=== PATIENT | female | born 1955 | race Caucasian/White ===

== ENCOUNTER → 2016-06-06 | Outpatient (REF) | payer OTHER ==
[2016-06-06 11:19] LABS: PERCENT SATURATION 25.2 % (13.2-37.4)
== END ==
LOC: M LAB REF 10:51
PROVIDERS: ATTEND Nurse Practitioner Adult Health
DX: K91.2 Postsurgical malabsorption, not elsewhere classified (principal)

== ENCOUNTER → 2016-11-27 | Outpatient (REF) | payer OTHER ==
[2016-11-27 15:11] LABS: PERCENT SATURATION 20.6 % (13.2-45.0)
== END ==
LOC: M LAB REF 13:33
PROVIDERS: ATTEND Nurse Practitioner Adult Health
DX: Z98.84 Bariatric surgery status (principal)

== ENCOUNTER → 2017-05-26 | Outpatient (REF) | payer OTHER | LOC: M LAB REF 11:54 | DX: R30.0 Dysuria (principal) ==

== ENCOUNTER → 2018-06-16 | Outpatient (REF) | payer OTHER ==
[2018-06-16 13:34] LABS: FERRITIN 21 NG/ML (8-252); IRON (FE) 74 UG/DL (50-170); PERCENT SATURATION 22.6 % (13.2-45.0); RHEUMATOID FACTOR QUANT < 10.0 IU/ML (<15.0); TOTAL IRON BINDING CAPACITY 328 UG/DL (250-450); VITAMIN B12 LEVEL 1212 PG/ML (247-911)
[2018-06-21 00:06] LABS: ANTINUCLEAR ANTIBODIES DIRECT Negative (Negative); VITAMIN B1 LEVEL WHOLE BLOOD 120.1 nmol/L (66.5-200.0)
== END ==
LOC: M LAB REF 12:24
PROVIDERS: ATTEND Nurse Practitioner Adult Health
DX: Z98.84 Bariatric surgery status (principal); M15.9 Polyosteoarthritis, unspecified

== ENCOUNTER → 2018-12-28 | Outpatient (CLI) | payer OTHER ==
[~2018-12-28] MED LIST: BARI1CAP PO; BRONCHW PO; CALC500C14 PO; CHOL100029 PO; CITRTAB18 PO; CYCL5TAB PO; CYMB1CAP5 PO; FAMO20TA PO; GNP650TA8 PO; LIDO5DIS41 TD; NEUR300C PO; OMEP40CA97 PO; TRAM50TA2 PO; TRAV04OPD OU; TRUS1SOL OU; VITA500C24 PO; VITA500T41 PO; XARE20TA PO
[2018-12-28 10:49] LABS: HEMATOCRIT 38.9 % (36.0-47.0); HEMOGLOBIN 12.2 g/dl (12.0-15.5); MEAN CORPUSCULAR HEMOGLOBIN 31.2 pg (27.0-33.0); MEAN CORPUSCULAR HGB CONC 31.4 g/dl (32.0-36.5); MEAN CORPUSCULAR VOLUME 99.5 fl (80.0-96.0); PLATELET COUNT, AUTOMATED 255 10^3/uL (150-450); RED BLOOD COUNT 3.91 10^6/uL (4.00-5.40); WHITE BLOOD COUNT 5.9 10^3/uL (4.0-10.0)
[2018-12-28 11:01] LABS: INR 1.4; PROTHROMBIN TIME 16.9 SECONDS (11.8-14.0)
[2018-12-28 11:11] LABS: ERYTHROCYTE SEDIMENTATION RATE 27 mm/hr (0-30)
[2018-12-28 11:14] LABS: ALBUMIN 4.2 GM/DL (3.2-5.2); ALT/SGPT 20 U/L (12-78); BILIRUBIN,TOTAL 0.5 MG/DL (0.2-1.0); BLOOD UREA NITROGEN 17 MG/DL (7-18); CALCIUM LEVEL 9.9 MG/DL (8.8-10.2); CARBON DIOXIDE LEVEL 32 MEQ/L (21-32); CHLORIDE LEVEL 106 MEQ/L (98-107); CREATININE FOR GFR 0.78 MG/DL (0.55-1.30); GLOMERULAR FILTRATION RATE > 60.0 (>45); GLUCOSE, FASTING 81 MG/DL (70-100); POTASSIUM SERUM 3.9 MEQ/L (3.5-5.1); SODIUM LEVEL 140 MEQ/L (136-145); TOTAL PROTEIN 7.1 GM/DL (6.4-8.2)
--- NOTE | 2018-12-28 11:49 | REP ---
Two-view chest: 12/28/2018. Indication: Preoperative assessment. Comparison: 08/28/2015. Findings: The lungs are clear. There is no pleural effusion or pneumothorax. Degenerative sequelae of the thoracic spine are present as well as evidence of DISH. The cardiomediastinal silhouette is unremarkable. Impression: No acute cardiopulmonary process. Electronically Signed by Ahmet Pham DO 12/28/2018 11:41 A
--- NOTE | 2018-12-28 21:49 | ECGEPIP ---
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
== END ==
LOC: M RAD 10:02
PROVIDERS: ATTEND Orthopaedic Surgery
DX: Z01.810 Encounter for preprocedural cardiovascular examination (principal); M17.11 Unilateral primary osteoarthritis, right knee; I49.9 Cardiac arrhythmia, unspecified

== ENCOUNTER 2019-01-17 06:43 | Inpatient (IN) | payer MEDICAID, OTHER ==
--- NOTE | 2019-01-10 11:03 | HPE ---
DATE OF ANTICIPATED ADMISSION: 01/17/2019 HISTORY OF PRESENT ILLNESS: Mrs. Wilhelm is a pleasant 63-year-old female with continuing symptomatic right knee osteoarthritis. She consented for right total knee arthroplasty per Dr. Victor Hugo Mccarthy. Medical optimization was completed by Debbi Ni, for which I am awaiting clearance note. The patient reports to be cleared per her own history. X-rays are consistent with advanced osteoarthritis. There is question of remaining cardiac clearance before surgery. ALLERGIES: None known to drugs. MEDICATION LIST: - tramadol HCl 50 mg - Lidoderm 5% - gabapentin 300 mg - Tylenol arthritis pain 650 mg - calcium gummies 250-100-500 mg - unit - multivitamin gummies adult - duloxetine HCl 30 mg - vitamin D high potency 1000 units - omeprazole 40 mg - vitamin B12 natural 500 mcg - vitamin C 500 mg - Citracal Petite/vitamin D 200-250 mg-unit - cyclobenzaprine HCl 5 mg - Xarelto 20 mg. MEDICAL PROBLEM LIST: Includes; Symptomatic right knee osteoarthritis. Depression. History of cardiac disease. PAST SURGICAL HISTORY: Gastric bypass. Glaucoma surgery. Bilateral cataract removal. SOCIAL HISTORY: She quit smoking in 1956. Rare ethanol intake. FAMILY HISTORY: Positive for arthritis. REVIEW OF SYSTEMS: Denies shortness of breath, dyspnea on exertion, fever, chills, malaise, upper respiratory or urinary tract symptoms. EKG showed sinus rhythm with marked sinus arrhythmia, prior tracing on 01/18/14 showed no significant change, as read by Dr. Jareth Vieira via [facility], test date 12/28/18. Chest x-ray via [facility] on 12/28/18: No acute cardiopulmonary process, as read by Dr. Ahmet Pham. Lab results showed RBC of 3.19, MCH at 99.5, MCHC 31.4, prothrombin time 16.9, calcium 2, alkaline phosphatase 123, otherwise unremarkable. PHYSICAL EXAMINATION: Height 5 feet 5 inches, weight one 145, temperature 98.7, blood pressure 131/87, pulse 82, respiration 13. This is a pleasant, well-developed, well-nourished female in no acute distress. She is alert and times three. Mood and affect are appropriate. She is ambulating with favoring of her left lower extremity. Bilateral lower extremities skin temperature, color, sensory motor are intact without any defects. Right knee: Positive medial joint line tenderness with varus osteoarthritic alignment. Knee range of motion with crepitance and pain throughout. Bowel sounds, soft, nontender times four. Chest rises symmetrically. Regular rate and rhythm. Lungs: Clear to auscultation. Neck: Supple. Negative jugular venous distention (JVD) or bruits. Normocephalic. IMPRESSION: 1. Symptomatic right knee osteoarthritis. 2. Patient consented for right total knee arthroplasty per Dr. Victor Hugo Mccarthy. 3. Primary care consultation via Debbi Ni on 01/04/19. 4. 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 5. 1 gram intravenous (IV) Kefzol in operating room (OR). 6. Sequential compression devices (SCDs) and thromboembolism deterrents (TEDs) in OR. 7. Will make sure that there is cardiac clearance attention through our scheduling office. QUETA
[~2019-01-17] VITALS: Ht 167.6 cm; Wt 68.0 kg
[2019-01-17] MEDS ORDERED: LR 1,000 ML IV ONE (06:45)
[2019-01-17] MEDS ORDERED: ceFAZolin SOD 2 GM in IV 1 EA IV ONE (06:45)
[2019-01-17] MEDS ORDERED: PROPOFOL 500 MG/50 ML VIAL As Ordered ONE (07:15)
[2019-01-17] MEDS ORDERED: MIDAZOLAM INJ 2 MG/2 ML VIAL (J2250) As Ordered ONE ×2 (07:15→08:30)
[2019-01-17] MEDS ORDERED: ONDANSETRON 4MG/2ML VIAL (J2405) As Ordered ONE (07:16)
[2019-01-17] MEDS ORDERED: LIDOCAINE 2% INJ 100 MG/5 ML SDV (FOR ANES.) As Ordered ONE (07:16)
[2019-01-17] MEDS ORDERED: TRANEXAMIC ACID 100 MG/ML 10ML VIAL As Ordered ONE (07:32)
[2019-01-17] MEDS ORDERED: ceFAZolin 1GM INJ (J0690 PER 500MG) As Ordered ONE (07:32)
[2019-01-17] MEDS ORDERED: EPINEPHrine INJ 1 MG/ML 1ML VIAL As Ordered ONE (07:32)
[2019-01-17] MEDS ORDERED: BUPIVACAINE LIPOSOME/PF 1.3% 20ML VIAL (13.3MG/ML)(EXPAREL)(C9290 PER1MG) As Ordered ONE (07:33)
--- NOTE | 2019-01-17 07:52 | IPN ---
DATE: 02/17/2018 The patient seen and examined. She wished to go ahead with a right total knee arthroplasty. She understands the nature of this, the risks of bleeding, infection, damage to nerves, vessels, persistent pain, wear loosening, blood clots, medical problems, among others.
[2019-01-17] MEDS ORDERED: fentaNYL 100 MCG/2 ML INJECTION (J3010) As Ordered ONE ×3 (08:30→10:53)
[2019-01-17] MEDS: MIDAZOLAM INJ 2 MG/2 ML VIAL (J2250) IV PRN ×2 (08:49→08:53)
[2019-01-17] MEDS: CYANOCOBALAMIN 500 MCG TAB PO SCH (09:00)
[2019-01-17] MEDS ORDERED: ROCURONIUM BROMIDE 50 MG/5 ML VIAL As Ordered ONE (09:13)
[2019-01-17] MEDS ORDERED: ACETAMINOPHEN 1000MG 100ML IV BTL (OFIRMEV) (J0131 PER 10MG) As Ordered ONE (09:45)
[2019-01-17] MEDS ORDERED: SUGAMMADEX SODIUM 500 MG/5 ML VIAL (BRIDION) As Ordered ONE (09:45)
[2019-01-17] MEDS ORDERED: PHENYLephrine HCL 500 MCG/5 ML (100MCG/ML) SYRINGE (J2370) As Ordered ONE (10:13)
[2019-01-17] MEDS ORDERED: PERCOCET 5MG/325MG TAB As Ordered ONE (10:53)
[2019-01-17] MEDS: fentaNYL 100 MCG/2 ML INJECTION (J3010) IV PRN ×3 (10:55→11:06)
[2019-01-17] MEDS ORDERED: ACETAMINOPHEN TAB 650MG DOSE (2X325MG) PO PRN (11:00)
[2019-01-17] MEDS ORDERED: FLEET ENEMA PR PRN (11:00)
[2019-01-17] MEDS ORDERED: MORPHINE 2 MG/ML 1ML VIAL (J2270) IV PRN ×2 (11:00)
[2019-01-17] MEDS ORDERED: ONDANSETRON 4MG/2ML VIAL (J2405) IV PRN ×2 (11:00→11:30)
[2019-01-17] MEDS ORDERED: LR 1,000 ML IV SCH ×2 (11:00→11:30)
[2019-01-17] MEDS ORDERED: fentaNYL 100 MCG/2 ML INJECTION (J3010) IV PRN (11:15)
--- NOTE | 2019-01-17 11:21 | REP ---
Right knee: Two views. History: Status post right knee arthroplasty. Findings: Portably obtained AP and cross-table lateral views are presented. Anterior skin isa are seen. Patellar, femoral, and tibial prosthetic components are well aligned with respect to each other and their [place] bones. There is periarticular soft tissue emphysema and swelling. Diffuse osteopenia is noted. Electronically Signed by Cesar Brennan MD 01/17/2019 12:16 P
[2019-01-17] MEDS ORDERED: PERCOCET 5MG/325MG TAB PO PRN (11:30)
[2019-01-17] MEDS ORDERED: METOCLOPRAMIDE INJ 10MG/2ML VIAL (J2765) IV PRN (11:30)
--- NOTE | 2019-01-17 12:40 | RO ---
DATE OF PROCEDURE: 01/17/2019 PREOP DIAGNOSIS: Right knee osteoarthritis. POSTOPERATIVE DIAGNOSIS: Right knee osteoarthritis. PROCEDURE: Right total knee arthroplasty using Attune rotating platform posterior stabilized, size 5 femur, size 5 tibia, 10 polyethylene and a 35 patellar button. SURGEON: Dr. Victor Hugo Mccarthy. UNIVERSAL BANKER: ADRIEL Edge ANESTHESIA: Spinal ESTIMATED BLOOD LOSS: 50 COMPLICATIONS: None. INDICATIONS: This is a 63-year-old woman who wished to have a knee replacement. Preop clearance was obtained. DESCRIPTION OF PROCEDURE: The patient was taken to the operating room, placed the supine position after spinal anesthesia was induced. The right lower extremity was prepped and draped in usual sterile fashion. Time-out was performed. Tourniquet was inflated. A longitudinal incision was made over the anterior aspect the knee. Sharp dissection was carried down to the . I then performed a medial parapatellar arthrotomy. Everted the patella, flexed the knee up and used the canal initiating reamer on the femoral side. The intramedullary guide was set at 9 mm cut and 5 degrees of valgus which sat down very nicely. This was pinned in place and I did dial it back 2 mm because she had somewhat of a flexion contracture. The distal femoral cut was made. The sizing guide was then used and noted be a size 5 femur and pinholes were placed in the end of the femur with the external rotation dialed in and then the cutting block was secured with a size 5, which was then secured down. I did use an extra pin because her bone was quite soft. Remaining four cuts were made. I then prepared the tibia. The posterior retractor was placed and I freed up the posterior cruciate ligament (PCL). The tibial alignment guide was secured in the appropriate amount of valgus and posterior slope. This was pinned in place and the external line was checked again. The proximal tibia cut was made removing this bone. I then used a fish and wildlife scientific aid to removed soft tissue and osteophytes from either side of the knee and it was noted that the PCL was deficient. I elected to go ahead with the PCL sacrificing knee and the cutting block was then secured to end of the femur. The remaining three cuts were made. I prepared the tibia after I used the spacer blocks to determine approximately a size 10 polyethylene was appropriate. I had done a medial release. I did have to extend this a little bit further. The size 5 tray fit nicely on the tibia. I drilled and broached and then placed the trial components and was very pleased with the size 10. Had excellent stability in extension and flexion and excellent soft tissue balance and alignment. I then freehand cut the patella removing about 7 mm of bone. Sized to be a 35. Drill holes were placed in the patella and the end of the femur and the coding assistant prepared the bone cement. I then trialled the patella and it tracked quite nicely. The trial components removed. I injected the Exparel in the deep tissues. I irrigated copiously, dried the bony surfaces and cemented the components, removing all excess bone cement. Held the patella in place with a clamp. I then irrigated again placed the TXA deep in the wound and then started the closure with #1 Vicryl suture in interrupted fashion. Once the cement hardened, I removed the patellar clamp and closed the remaining deep layer with running Stratafix suture. Prior to this, did a final deep irrigation. Watertight closure was obtained. The patella tracked quite nicely. I then irrigated, closed the subcu with #2-0 Vicryl and the skin with isa. Tourniquet was deflated once the cement was hardened. Sterile dressing was applied. She was taken to recovery room in stable condition. There were no known complications. The plan will be routine postop. The coding assistant was instrumental in holding retractors and assisting in mixing the bone cement and assisting in wound closure. The coding assistant was instrumental in holding retractors and assisting mixing the bone cement and assisting in wound closure. QUETA
[2019-01-17] MEDS ORDERED: ROPIvacaine 0.5% 30 ML INJECTION (J2795 PER 1MG) ONE (13:19)
[2019-01-17] MEDS ORDERED: LIDOCAINE 1% MDV 20ML VIAL ONE (13:19)
[2019-01-17] MEDS ORDERED: EPINEPHrine INJ 1 MG/ML 1ML VIAL ONE (13:19)
[2019-01-17] MEDS: GABAPENTIN 300 MG CAP PO SCH ×2 (16:00→21:07)
[2019-01-17] MEDS: PERCOCET 5MG/325MG TAB PO PRN (16:36)
--- NOTE | 2019-01-17 17:36 | CR.PDOC ---
General Date of Consultation: Jan 17, 2019 Consultation REASON FOR CONSULTATION/CHIEF COMPLAINT: Medical management. HISTORY OF PRESENT ILLNESS: 63-year-old female with past medical history of atrial fibrillation on Xarelto, neuropathy and GERD is admitted status post right total knee arthroplasty. She is seen on the floor, resting comfortably, without any complaints, pain is well-controlled with current pain regimen. She denies any medical issues prior, to surgery. She denies any short of breath, chest pain, nausea, vomiting. Diarrhea at this time. 10 point review of system is negative except for above ALLERGIES: Please see below. HOME MEDICATIONS: Please see below. PAST MEDICAL HISTORY: 1. Atrial fibrillation. 2. Neuropathy. 3. GERD PAST SURGICAL HISTORY: 1. Gastric bypass 2. Eye surgeries FAMILY HISTORY: Positive for heart disease in both parents SOCIAL HISTORY: Ex-smoker, quit over 40 years ago, smoked 2-3 packs per day for 20+ years PHYSICAL EXAMINATION: VITAL SIGNS: Please see below. GENERAL: No distress HEENT: Normocephalic, atraumatic, moist mucous membranes NECK: Supple CARDIOVASCULAR EXAMINATION: S1, S2, no murmurs RESPIRATORY EXAMINATION: Clear to auscultation, no wheezing ABDOMINAL EXAMINATION: Soft, nontender, nondistended, positive bowel sounds EXTREMITIES: Range of motion limited due to pain SKIN: No rash NEUROLOGICAL EXAMINATION: Alert and oriented 3, no focal deficits PSYCHIATRIC EXAMINATION: Calm and cooperative LABORATORY DATA: Please see below. ASSESSMENT/PLAN: 63-year-old female admitted after right total knee arthroplasty. 1. Right total knee arthroplasty. Management as per primary team, Xarelto dose was increased from 10 mg to 20 mg which is what patient takes at home for her atrial fibrillation. 2. Atrial fibrillation. Continue Xarelto starting tomorrow, rate controlled without medication. 3. Neuropathy. Continue home duloxetine 4. GERD. Continue home Pepcid DVT prophylaxis: Xarelto GI prophylaxis: Pepcid Vital Signs/I&O Vital Signs Date Time Temp Pulse Resp B/P (MAP) Pulse Ox O2 Delivery O2 Flow Rate FiO2 01/17/19 16:36 16 01/17/19 11:20 97.8 68 160/78 (105) 100 Room Air 01/17/19 09:00 2 Allergies Coded Allergies: No Known Allergies (Unverified , 01/17/19) Home Medications Scheduled Cyanocobalamin (Vitamin B-12) (Vitamin B-12) 500 Mcg Tablet, 1,000 MCG PO DAILY, (Reported) Dorzolamide HCl (Trusopt) 2% 10ML Drops, 1 DROP OU QHS, (Reported) Duloxetine Hcl (Cymbalta) 30 Mg Capsule.dr, 30 MG PO DAILY, (Reported) Famotidine (Famotidine) 20 Mg Tablet, 20 MG PO BID, (Reported) Gabapentin (Neurontin) 300 Mg Capsule, 300 MG PO TID, (Reported) Multivitamin (Chewable-Estella) 1 Each Tab.chew, 1 CHW PO DAILY, (Reported) Rivaroxaban (Xarelto) 20 Mg Tablet, 20 MG PO DAILY, (Reported) Travoprost (Travatan Z) 0.004% 2.5ML Drops, 1 DROP OU QPM, #3 (Reported) Scheduled PRN Acetaminophen (8 Hour) 650 Mg Tablet.er, 650 MG PO PRN PRN for PAIN, (Reported) Tramadol HCl (Tramadol HCl) 50 Mg Tablet, 50 MG PO BIDP PRN for PAIN, (Reported) HEAVEN MCKEON MD Jan 17, 2019 17:36
[2019-01-17] MEDS: ceFAZolin SOD 2 GM in IV 1 EA IV SCH (18:05)
[2019-01-17] MEDS ORDERED: LATANOPROST 0.005% OPHTH SOLN 2.5 ML OU SCH (21:00)
[2019-01-17] MEDS ORDERED: DORZOLAMIDE 2% OPHTH SOLN 10 ML BTL OU SCH (21:00)
[2019-01-17] MEDS: FAMOTIDINE 20 MG TAB PO SCH (21:06)
[2019-01-17] MEDS: traMADol 50 MG TAB PO PRN (21:07)
[2019-01-17 21:29] VITALS: BP 104/52
[2019-01-18] MEDS: PERCOCET 5MG/325MG TAB PO PRN ×3 (01:25→14:34)
[2019-01-18] MEDS: ceFAZolin SOD 2 GM in IV 1 EA IV SCH (01:26)
[2019-01-18 02:00] VITALS: BP 116/68
[2019-01-18] MEDS: traMADol 50 MG TAB PO PRN (06:12)
[2019-01-18 06:23] VITALS: BP 115/64
[2019-01-18 06:38] LABS: HEMATOCRIT 29.5 % (36.0-47.0); HEMOGLOBIN 9.2 g/dl (12.0-15.5); MEAN CORPUSCULAR HEMOGLOBIN 31.5 pg (27.0-33.0); MEAN CORPUSCULAR HGB CONC 31.2 g/dl (32.0-36.5); PLATELET COUNT, AUTOMATED 300 10^3/uL (150-450); RED BLOOD COUNT 2.92 10^6/uL (4.00-5.40); WHITE BLOOD COUNT 8.4 10^3/uL (4.0-10.0)
[2019-01-18] MEDS ORDERED: TRAM50TA2 PO (07:03)
[2019-01-18] MEDS ORDERED: XARE10TA PO (07:03)
[2019-01-18 09:00] VITALS: BP 112/64
[2019-01-18] MEDS ORDERED: MOM 30ML SUSPENSION UDC PO SCH (09:00)
[2019-01-18] MEDS ORDERED: MIRALAX *UNIT DOSE* 17GM PACKET PO SCH (09:00)
[2019-01-18] MEDS ORDERED: SENOKOT S TAB PO SCH (09:00)
[2019-01-18] MEDS ORDERED: DULoxetine 30 MG CAP (CYMBALTA) PO SCH (09:00)
[2019-01-18] MEDS: FAMOTIDINE 20 MG TAB PO SCH (09:56)
[2019-01-18] MEDS: CYANOCOBALAMIN 500 MCG TAB PO SCH (09:57)
[2019-01-18] MEDS: GABAPENTIN 300 MG CAP PO SCH (09:58)
[2019-01-18 15:24] VITALS: BP 127/78
[2019-01-18] MEDS ORDERED: RIVAROXABAN 10 MG TAB (XARELTO) PO SCH (18:00)
[2019-01-18] MEDS ORDERED: RIVAROXABAN 20 MG TAB (XARELTO) PO SCH (18:00)
[2019-01-19] MEDS ORDERED: FLUBLOK(EGG FREE)(QUAD)INFLUENZA VACC 0.5ML SYRINGE (90682)18YRS&OLDER IM ONE (09:00)
--- NOTE | 2019-01-26 14:27 | DSES ---
DATE OF ADMISSION: 01/17/2019 DATE OF DISCHARGE: 01/18/2019 ATTENDING PHYSICIAN: Victor Hugo Mccarthy MD ADMISSION DIAGNOSIS: Osteoarthritis right knee. OTHER DIAGNOSES: 1. Depression. 2. Cardiac disease. DISCHARGE DIAGNOSIS: Osteoarthritis right knee status post right total knee arthroplasty. OPERATION PERFORMED: Right total knee arthroplasty. HISTORY: This is a 63-year-old female patient with progressively worsening right knee pain and stiffness who failed to improve with conservative management. She was admitted for elective knee replacement on the right side. HOSPITAL COURSE: The patient was admitted on the day of surgery and underwent a right total knee arthroplasty which was uneventful. She did well in the postoperative period and hospital course was without complication. She was up with physical therapy per their protocol and pain was controlled on the day of discharge. She was doing well, weightbearing as tolerated on the right lower extremity and will use Xarelto and thromboembolic deterrent stockings (TEDS) for deep vein thrombosis (DVT) prophylaxis per protocol. She will resume her preoperative medications and diet along with oral pain medication for pain control. She was given instructions to include, but not limited to, wound monitoring and activity limitations. She will follow up in our office in 10-14 days for surgical followup. Please refer to the medical record for further details.
== END 2019-01-18 15:45 | disposition home health service (06) | DRG 302 ==
LOC: M OR 06:43 → M MS5PR 11:40
PROVIDERS: ADMIT Orthopaedic Surgery; ATTEND Orthopaedic Surgery
PROC: 0SRC0J9 Replacement of Right Knee Joint with Synthetic Substitute, Cemented, Open Approach (ICD-10-PCS; principal; 2019-01-17 09:00)
DX: M17.11 Unilateral primary osteoarthritis, right knee (principal); G62.9 Polyneuropathy, unspecified; F32.9 Major depressive disorder, single episode, unspecified; I51.9 Heart disease, unspecified; I48.91 Unspecified atrial fibrillation; Z79.899 Other long term (current) drug therapy; Z98.84 Bariatric surgery status; Z98.41 Cataract extraction status, right eye; Z98.42 Cataract extraction status, left eye; K21.9 Gastro-esophageal reflux disease without esophagitis; Z87.891 Personal history of nicotine dependence

== ENCOUNTER → 2019-07-19 | Outpatient (REF) | payer OTHER ==
[~2019-07-19] MED LIST changes: +XARE10TA PO
[2019-07-19 18:35] LABS: PERCENT SATURATION 26.8 % (13.2-45.0)
[2019-07-19 18:51] LABS: TOTAL 25(OH) VITAMIN D 30.8 NG/ML (30.0-100.0)
== END ==
LOC: M LAB REF 16:06
PROVIDERS: ATTEND Nurse Practitioner Adult Health
DX: K91.2 Postsurgical malabsorption, not elsewhere classified (principal)

== ENCOUNTER → 2020-10-16 | Outpatient (REF) | payer OTHER ==
[~2020-10-16] MED LIST changes: +OMEP40CA4 PO; -OMEP40CA97 PO
[2020-10-16 18:13] LABS: FOLATE 14.2 NG/ML
== END ==
LOC: M LAB REF 16:31
PROVIDERS: ATTEND Nurse Practitioner Adult Health
DX: Z98.84 Bariatric surgery status (principal)

== ENCOUNTER → 2020-11-06 | Outpatient (REF) | payer MEDICARE, OTHER ==
[2020-11-06 13:09] LABS: APPEARANCE, URINE CLEAR (CLEAR); BACTERIA, URINE AUTO NEGATIVE (NEGATIVE); BILIRUBIN, URINE AUTO NEGATIVE (NEGATIVE); BLOOD, URINE BLOOD NEGATIVE (NEGATIVE); COLOR, URINE STRAW (YELLOW); GLUCOSE, URINE (UA) AUTO NEGATIVE (NEGATIVE); KETONE, URINE AUTO NEGATIVE (NEGATIVE); LEUKOCYTE ESTERASE, URINE AUTO NEGATIVE (NEGATIVE); MUCUS, URINE SMALL (NEGATIVE); NITRITE, URINE AUTO NEGATIVE (NEGATIVE); PROTEIN, URINE AUTO NEGATIVE (NEGATIVE); RBC, URINE AUTO 0 /HPF (0-3); SPECIFIC GRAVITY URINE AUTO 1.004 (1.002-1.035); SQUAMOUS EPITHELIAL CELL UR AU 1 /HPF (0-6); UROBILINOGEN, URINE AUTO 0.2 mg/dL (0.0-2.0); WBC, URINE AUTO 0 /HPF (0-3)
== END ==
LOC: M LAB REF 12:26
PROVIDERS: ATTEND Obstetrics & Gynecology
DX: N39.0 Urinary tract infection, site not specified (principal)

== ENCOUNTER 2021-02-07 15:50 | Inpatient (IN) | payer MEDICARE, OTHER ==
[~2021-02-07] VITALS: Ht 167.6 cm; Wt 69.4 kg
[~2021-02-07 15:50] MED LIST changes: +TRUS1SOL OS; -TRUS1SOL OU
--- NOTE | 2021-02-07 16:35 | REP ---
INDICATION: CHEST PAIN COMPARISON: 12/28/2018 TECHNIQUE: Portable AP view of the chest FINDINGS: The mediastinum and cardiac silhouette are stable and within normal limits for portable technique. The lung tang demonstrate stable chronic changes without consolidation or effusion. No pneumothorax. A small vague 6 mm noncalcified nodule in the periphery of the left lower lung zone cannot be excluded and represents a change from prior examination. Skeletal structures are intact. IMPRESSION: No focal consolidation or effusion. Cannot exclude small 6 mm noncalcified nodule in the left lower lung zone. <Electronically signed by Remigio Wang > 02/07/21 [id number]
[2021-02-07 16:51] LABS: BASO % 0.6 % (0.0-1.0); EOS # 0.1 10^3/uL (0.0-0.5); EOS % 1.9 % (0.0-3.0); HEMOGLOBIN 11.1 g/dl (12.0-15.5); LYMPH # 2.4 10^3/uL (1.5-5.0); LYMPH % 32.7 % (24.0-44.0); MEAN CORPUSCULAR HEMOGLOBIN 29.8 pg (27.0-33.0); MEAN CORPUSCULAR HGB CONC 30.8 g/dl (32.0-36.5); MEAN CORPUSCULAR VOLUME 96.8 fl (80.0-96.0); MONO # 0.6 10^3/uL (0.0-0.8); MONO % 7.8 % (2.0-8.0); NEUTROPHILS # 4.1 10^3/uL (1.5-8.5); NEUTROPHILS % 56.9 % (36.0-66.0); PLATELET COUNT, AUTOMATED 302 10^3/uL (150-450); RED BLOOD COUNT 3.72 10^6/uL (4.00-5.40); WHITE BLOOD COUNT 7.2 10^3/uL (4.0-10.0)
[2021-02-07] MEDS ORDERED: ISOVUE-370 76% 100ML VIAL As Ordered ONE (17:01)
[2021-02-07 17:05] LABS: INR 1.1; PROTHROMBIN TIME 14.6 SECONDS (12.7-14.5)
[2021-02-07 17:24] LABS: RSV AMPLIFICATION NEGATIVE (NEGATIVE)
[2021-02-07 17:24] LABS: ALBUMIN 3.6 GM/DL (3.2-5.2); ALT/SGPT 21 U/L (12-78); BILIRUBIN,DIRECT < 0.1 MG/DL (0.0-0.2); BILIRUBIN,TOTAL 0.2 MG/DL (0.2-1.0); BLOOD UREA NITROGEN 19 MG/DL (7-18); CALCIUM LEVEL 8.8 MG/DL (8.8-10.2); CARBON DIOXIDE LEVEL 30 MEQ/L (21-32); CHLORIDE LEVEL 107 MEQ/L (98-107); CREATININE FOR GFR 0.79 MG/DL (0.55-1.30); GLOMERULAR FILTRATION RATE > 60.0 (>45); GLUCOSE, FASTING 84 MG/DL (70-100); LIPASE 182 U/L (73-393); NT-PRO BNP 742 PG/ML (<125); POTASSIUM SERUM 4.5 MEQ/L (3.5-5.1); SODIUM LEVEL 139 MEQ/L (136-145); TOTAL PROTEIN 6.6 GM/DL (6.4-8.2)
[2021-02-07] MEDS ORDERED: ACETAMINOPHEN TAB 650MG DOSE (2X325MG) PO ONE (18:15)
--- NOTE | 2021-02-07 18:20 | REPVR ---
PROCEDURE INFORMATION: Exam: CT Head Without Contrast Exam date and time: 02/07/2021 5:33 PM Age: 65 years old Clinical indication: Pain; Headache; Additional info: DIANNA [email or web address] TECHNIQUE: Imaging protocol: Computed tomography of the head without contrast. Radiation optimization: All CT scans at this facility use at least one of these dose optimization techniques: automated exposure control; mA and/or kV adjustment per patient size (includes targeted exams where dose is matched to clinical indication); or iterative reconstruction. COMPARISON: NM Bone Scan Whole Body 02/27/2014 12:09 PM FINDINGS: Brain: There is mild diffuse parenchymal atrophy. No evidence acute. White disease shift mass. Cerebral ventricles: No ventriculomegaly. Paranasal sinuses: Inflammatory changes right maxillary sinus. Mastoid air cells: Visualized mastoid air cells are well aerated. Bones/joints: Unremarkable. No acute fracture. Soft tissues: Unremarkable. IMPRESSION: No acute intracranial findings. Electronically signed by: Renato Laboy On 02/07/2021 18:19:39 PM
--- NOTE | 2021-02-07 18:22 | ECGEPIP ---
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
--- NOTE | 2021-02-07 18:24 | REPVR ---
PROCEDURE INFORMATION: Exam: CTA Chest With Contrast Exam date and time: 02/07/2021 5:33 PM Age: 65 years old Clinical indication: Pain; Chest pressure; Additional info: Sob/chest pain TECHNIQUE: Imaging protocol: Computed tomographic angiography of the chest with contrast. 3D rendering (Not supervised by radiologist): MIP and/or 3D reconstructed images were created by the technologist. Radiation optimization: All CT scans at this facility use at least one of these dose optimization techniques: automated exposure control; mA and/or kV adjustment per patient size (includes targeted exams where dose is matched to clinical indication); or iterative reconstruction. Contrast material: ISOVUE 370; Contrast volume: 75 ml; Contrast route: INTRAVENOUS (IV); COMPARISON: CR PORTABLE CHEST X-RAY 02/07/2021 4:17 PM FINDINGS: Pulmonary arteries: There are no pulmonary emboli. Aorta: There is no aortic dissection or aneurysm. Lungs: Unremarkable. No consolidation. No masses. Pleural spaces: Unremarkable. No pneumothorax. No pleural effusion. Heart: Unremarkable. No cardiomegaly. No pericardial effusion. Lymph nodes: Unremarkable. No enlarged lymph nodes. 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 Soft tissues: Status post gastric bypass. Status post cholecystectomy. Otherwise unremarkable. IMPRESSION: 1. There is no aortic dissection or aneurysm. 2. There are no pulmonary emboli. 3. No acute pulmonary parenchymal abnormality. Electronically signed by: Renato Laboy On 02/07/2021 18:23:48 PM
[2021-02-07] MEDS ORDERED: DIGOXIN INJ 0.5 MG/2 ML AMP (J1160) IV STA (18:30)
[2021-02-07] MEDS ORDERED: MULTTAB61 PO (18:39)
[2021-02-07] MEDS ORDERED: ACETAMINOPHEN TAB 650MG DOSE (2X325MG) PO PRN (18:45)
[2021-02-07] MEDS ORDERED: METO1TAB87 PO (19:17)
[2021-02-07] MEDS ORDERED: AMOX500C PO (19:17)
[2021-02-07] MEDS ORDERED: XALA0.007 OS (19:23)
[2021-02-07] MEDS ORDERED: OMEP-221 PO (19:24)
[2021-02-07] MEDS ORDERED: HOME MED LIST COMPLETE! XX SCH (19:25)
--- NOTE | 2021-02-07 20:46 | HPEPDOC ---
General Date of Admission 02/07/21 Date of Service: Feb 07, 2021 Chief Complaint The patient is a 65-year-old female admitted with a reason for visit of Chest Pain. Source: Patient History of Present Illness Nessa Wilhelm is a 65 yo F with PMH of cataracts, afib, glaucoma, ABRAHAM without CPAP, GERD, and OA who arrives from cardiology office with dizziness and elevated HR. Pt reportedly has had afib for some time but "never have needed medication" until recently. She reports she has been having episodes of dizziness, chest pain and headaches intermittently past 6 days. She was seen by cardiology and given her uncontrolled HR in 140s and her symptoms, went to [facility] where she was started on metoprolol. Unfortunately, pt's SBP had been running 90-115 and she was adjusted to metoprolol tartrate. She reports taking 5 doses total (twice past 2 days and one this AM). As she went for f/u with cardiology today, was still symptomatic with HR labile 90-140 with softer BP; she was sent to ED for further management to control HR other than metoprolol. Cardiology, Dr. Vieira, consulted in ED and recommended Digoxin loading dose and he would see pt in AM. Pt afebrile, Map greater than 70 during admission and HR varying 90-115. Initial labwork unremarkable. Given pt with dizziness, tachycardia, episodes of chest pain and BUSTAMANTE, she underwent CTA chest and CT head which were nonacute. Pt does endorse recent tooth extraction 6 days ago as only new adjustment and took 6 days worth of Augmentin which finished today. Pt will be admitted for further evaluation and management of presenting concerns. Home Medications Scheduled Amoxicillin (Amoxicillin) 500 Mg Capsule, 500 MG PO Q8H, (Reported) Cyanocobalamin (Vitamin B-12) (Vitamin B-12) 500 Mcg Tablet, 1,000 MCG PO DAILY, (Reported) Dorzolamide HCl (Trusopt) 2% 10ML Drops, 1 DROP OS BID, (Reported) Duloxetine Hcl (Cymbalta) 30 Mg Capsule.dr, 30 MG PO DAILY, (Reported) Gabapentin (Neurontin) 300 Mg Capsule, 600 MG PO QHS, (Reported) Latanoprost (Xalatan) 0.005% 2.5ML Drops, 1 DROP OS QHS, (Reported) Metoprolol Tartrate (Metoprolol Tartrate) 25 Mg Tablet, 25 MG PO BID, (Reported) Multivitamin (Multivitamins) 1 Each Tablet, 1 TAB PO DAILY, (Reported) Omeprazole (Omeprazole) 40 Mg Capsule.dr, 40 MG PO DAILY, (Reported) Rivaroxaban (Xarelto) 20 Mg Tablet, 20 MG PO QHS, (Reported) Scheduled PRN Acetaminophen (8 Hour) 650 Mg Tablet.er, 650 MG PO Q8H PRN for PAIN, (Reported) Tramadol HCl (Tramadol HCl) 50 Mg Tablet, 50 MG PO BIDP PRN for PAIN, (Reported) Allergies Coded Allergies: No Known Allergies (Unverified , 01/17/19) Past Medical History Medical History cataracts, afib, glaucoma, ABRAHAM without CPAP, GERD, OA, post menopausal Surgical History Bilateral cataract surgery, gastric bypass 2014, cholecystectomy, R knee arthroscopy, D&C Social History * Smoker: non-smoker Alcohol: Denies Drugs: denies Recent Travel/Sick Contacts: Denies: Recent travel, Recent sick contacts Psychosocial History: Depression A-FIB/CHADSVASC A-FIB History Current/History of A-Fib/PAF?: Yes Current PO Anticoag Therapy: Yes Review of Systems Constitutional: Denies: Chills, Fever, Night Sweats Eyes: Denies: Pain, Vision change ENT: Denies: Head Aches, Ear Pain, Dysphagia Skin: Denies: Rash, Lesions, Breakdown Pulmonary: Denies: Dyspnea, Cough Cardiovascular: Reports: Chest Pain, Lt Headedness; Denies: Palpitations, Orthopnea, Paroxysmal Noc. Dyspnea Gastrointestinal: Denies: Nausea, Vomiting, Abdominal Pain, Diarrhea Genitourinary: Denies: Dysuria, Frequency, Incontinence, Retention Hematologic: Denies: Bruising, Bleeding Excessively Musculoskeletal: Denies: Neck Pain, Back Pain, Joint Pain, Muscle Pain, Spasms Neurological: Reports: Other Symptoms (bustamante); Denies: Weakness, Numbness, Change in speech, Confusion Psych: Reports: Mood Normal; Denies: Depression, Memory Issues Physical Examination General Exam: Positive: Alert, Cooperative, No Acute Distress Eye Exam: Positive: PERRLA, Conjunctiva & lids normal, EOMI; Negative: Sclera icteric ENT Exam: Positive: Atraumatic, Mucous membr. moist/pink, Pharynx Normal Neck Exam: Positive: Supple; Negative: JVD, thyromegaly Chest Exam: Positive: Clear to auscultation, Normal air movement Heart Exam: Positive: Tachycardic, Irregular Rhythm, Normal S1, Normal S2; Negative: Murmurs, Rubs Telemetry: Positive: Atrial fibrillation Abdomen Exam: Positive: Normal bowel sounds, Soft; Negative: Tenderness, Hepatospenomegaly Extremity Exam: Positive: Normal pulses; Negative: Clubbing, Cyanosis, Edema Skin Exam: Positive: Nl turgor and temperature; Negative: Breakdown, Lesion Neuro Exam: Positive: Normal Gait, Normal Speech, Cranial Nerves 3-12 NL, Reflexes 2+ Psych Exam: Positive: Mental status NL, Mood NL, Oriented x 3 Vital Signs Vital Signs Date Time Temp Pulse Resp B/P (MAP) Pulse Ox O2 Delivery O2 Flow Rate FiO2 02/07/21 15:51 97.3 64 18 132/64 (86) 100 Room Air Laboratory Data Labs 24H Laboratory Tests 2 02/07/21 16:25: Immature Granulocyte % (Auto) 0.1, Neutrophils (%) (Auto) 56.9, Lymphocytes (%) (Auto) 32.7, Monocytes (%) (Auto) 7.8, Eosinophils (%) (Auto) 1.9, Basophils (%) (Auto) 0.6, Neutrophils # (Auto) 4.1, Lymphocytes # (Auto) 2.4, Monocytes # (Auto) 0.6, Eosinophils # (Auto) 0.1, Basophils # (Auto) 0.0, Nucleated Red Blood Cells % (auto) 0.0, Prothrombin Time 14.6H, Prothromb Time International Ratio 1.10, Activated Partial Thromboplast Time 32.0, Anion Gap 2L, Glomerular Filtration Rate > 60.0, Calcium Level 8.8, Total Bilirubin 0.2, Direct Bilirubin < 0.1, Aspartate Amino Transf (AST/SGOT) 22, Alanine Aminotransferase (ALT/SGPT) 21, Alkaline Phosphatase 111, BR-Fcv-H-Type Natriuretic Peptide 742H, Total Protein 6.6, Albumin 3.6, Albumin/Globulin Ratio 1.2, Lipase 182, Thyroid Stimulating Hormone (TSH) 1.210, Free Thyroxine 1.00 02/07/21 16:33: POC Glucose (Misc Panel) 84, POC Sodium (Misc Panel) 140, POC Potassium (Misc Panel) 4.5, POC Chloride (Misc Panel) 104, POC Total CO2 (Misc Panel) 26.0, POC Blood Urea Nitrogen (Misc Panel 20, POC Ionized Calcium (Misc Panel) 4.9, POC Creatinine (Misc Panel) 0.8, POC Hematocrit (Misc Panel) 36.0L 02/07/21 16:34: Coronavirus (COVID-19)(PCR) NEGATIVE, Influenza Type A (RT-PCR) NEGATIVE, Influenza Type B (RT-PCR) NEGATIVE, Respiratory Syncytial Virus (PCR) NEGATIVE 02/07/21 16:38: POC Troponin I (Misc) 0.00 CBC/BMP Laboratory Tests 02/07/21 16:25 Assessment/Plan 1. Afib RVR: pt BP has not been tolerating Metoprolol, and thus Digoxin recommended -Monitor pt, tele -Digoxin loading dose -A.m. lab -Appreciate further recommendations per cards 2. GERD: Omeprazole 3. ABRAHAM: Pt does not reportedly use CPAP 4. Depression: Monitor mood, continue cymbalta. DVT Px: Xarelto CODE STATUS: FULL Dispo planning: Home once HR/BP stable Plan / VTE VTE Prophylaxis Ordered?: Yes SANAM PAVON NP Feb 07, 2021 19:05
[2021-02-08] VITALS (7 sets, daily range): BP systolic 102–125; BP diastolic 50–72
[2021-02-08] MEDS ORDERED: DIGOXIN INJ 0.5 MG/2 ML AMP (J1160) IV ONE
[2021-02-08] MEDS ORDERED: traMADol 50 MG TAB PO PRN (00:45)
[2021-02-08] MEDS ORDERED: ACETAMINOPHEN 650MG ER TAB (TYLENOL ARTHRITIS) PO PRN (00:45)
[2021-02-08] MEDS: GABAPENTIN 300 MG CAP PO SCH ×2 (01:22→20:22)
[2021-02-08 05:36] LABS: BASO # 0.1 10^3/uL (0.0-0.2); BASO % 0.9 % (0.0-1.0); EOS # 0.1 10^3/uL (0.0-0.5); EOS % 2.4 % (0.0-3.0); HEMATOCRIT 34.5 % (36.0-47.0); HEMOGLOBIN 10.7 g/dl (12.0-15.5); LYMPH # 3.1 10^3/uL (1.5-5.0); LYMPH % 52.8 % (24.0-44.0); MEAN CORPUSCULAR HEMOGLOBIN 30.1 pg (27.0-33.0); MEAN CORPUSCULAR VOLUME 96.9 fl (80.0-96.0); MONO # 0.5 10^3/uL (0.0-0.8); MONO % 8.1 % (2.0-8.0); NEUTROPHILS # 2.1 10^3/uL (1.5-8.5); NEUTROPHILS % 35.6 % (36.0-66.0); PLATELET COUNT, AUTOMATED 258 10^3/uL (150-450); RED BLOOD COUNT 3.56 10^6/uL (4.00-5.40); WHITE BLOOD COUNT 5.8 10^3/uL (4.0-10.0)
[2021-02-08 06:11] LABS: BLOOD UREA NITROGEN 20 MG/DL (7-18); CALCIUM LEVEL 8.9 MG/DL (8.8-10.2); CARBON DIOXIDE LEVEL 29 MEQ/L (21-32); CHLORIDE LEVEL 109 MEQ/L (98-107); CREATININE FOR GFR 0.76 MG/DL (0.55-1.30); FERRITIN 13 NG/ML (8-252); GLOMERULAR FILTRATION RATE > 60.0 (>45); GLUCOSE, FASTING 78 MG/DL (70-100); IRON (FE) 51 UG/DL (50-170); PERCENT SATURATION 16.8 % (13.2-45.0); POTASSIUM SERUM 4.5 MEQ/L (3.5-5.1); SODIUM LEVEL 141 MEQ/L (136-145); TOTAL IRON BINDING CAPACITY 304 UG/DL (250-450)
[2021-02-08 08:08] LABS: FOLATE 10.3 NG/ML (>5.4); VITAMIN B12 LEVEL 409 PG/ML (247-911)
[2021-02-08] MEDS ORDERED: ONDANSETRON 4MG/2ML VIAL IV PRN (08:50)
[2021-02-08] MEDS ORDERED: DORZOLAMIDE 2% OPHTH SOLN 10 ML BTL OS SCH ×2 (09:00→21:00)
[2021-02-08] MEDS: MULTIVITAMINS/MINERALS THERAP 1 TAB PO SCH (09:15)
[2021-02-08] MEDS: OMEPRAZOLE 20 MG CAP PO SCH (09:15)
[2021-02-08] MEDS: DIGOXIN INJ 0.5 MG/2 ML AMP (J1160) IV SCH ×2 (09:15→14:48)
[2021-02-08] MEDS: DULoxetine 30MG CAPSULE (CYMBALTA) PO SCH (09:16)
[2021-02-08] MEDS: CYANOCOBALAMIN 500 MCG TAB PO SCH (09:16)
--- NOTE | 2021-02-08 14:22 | IPNPDOC ---
Subjective Date Seen The patient was seen on 02/08/21. Subjective Chief Complaint/HPI Mrs. Wilhelm is a 65 year old female with atrial fibrillation who presents from cardiology's office for dizziness and elevated HR. Patient had 0.25mg IV digoxin x2 last night. Will give her another 0.25mg IV digoxin q6h x2 now to complete a digoxin load. This morning, she had malaise, but denied chest pain or dyspnea. I reached out to cardiology, Dr. Vieira. Since blood pressure is better, we can try PO Lopressor 25mg q6h. Otherwise, will continue PO digoxin 0.25mg daily tomorrow morning. Objective Physical Examination General Exam: Positive: Alert, Cooperative Eye Exam: Positive: EOMI; Negative: Sclera icteric ENT Exam: Positive: Atraumatic Neck Exam: Positive: Supple Chest Exam: Positive: Clear to auscultation Heart Exam: Positive: Tachycardic, Irregular Rhythm Abdomen Exam: Positive: Normal bowel sounds, Soft; Negative: Tenderness Extremity Exam: Negative: Edema Neuro Exam: Positive: Normal Speech Psych Exam: Positive: Mental status NL, Mood NL Assessment /Plan Assessment Mrs. Wilhelm is a 65 year old female with atrial fibrillation who presents from cardiology's office for dizziness and elevated HR and found to have atrial fibrillation with RVR. Patient's blood pressure is low which make controlling heart rate difficult. We have dig loaded her with 1mg IV digoxin in total. Will start PO digoxin 0.25mg daily tomorrow. Since blood pressure is better, will try PO Lopressor. Plan/VTE VTE Prophylaxis Ordered?: Yes Plan 1. Atrial fibrillation with RVR -Digoxin load with 1mg IV total -Continue digoxin 0.25mg PO qD -Start Lopressor 25mg PO q6h with holding parameters -Continue with Xarelto -Case discussed with Dr. Vieira 2. GERD -Continue omeprazole 3. ABRAHAM -Non compliant with CPAP 4. Glucoma -Continue eye drops 5. DVT ppx -On Xarelto Disposition: Pending improvement and control of heart rate VS, I&O, 24H, Fishbone Vital Signs/I&O Vital Signs Date Time Temp Pulse Resp B/P (MAP) Pulse Ox O2 Delivery O2 Flow Rate FiO2 02/08/21 09:15 143 121/72 (88) 02/08/21 08:22 96.9 16 97 Room Air I&O- Last 24 Hours up to 6 AM 02/08/21 06:00 Intake Total 0 ml Output Total 400 ml Balance -400 ml Laboratory Data 24H LABS Laboratory Tests 2 02/07/21 16:25: Immature Granulocyte % (Auto) 0.1, Neutrophils (%) (Auto) 56.9, Lymphocytes (%) (Auto) 32.7, Monocytes (%) (Auto) 7.8, Eosinophils (%) (Auto) 1.9, Basophils (%) (Auto) 0.6, Neutrophils # (Auto) 4.1, Lymphocytes # (Auto) 2.4, Monocytes # (Auto) 0.6, Eosinophils # (Auto) 0.1, Basophils # (Auto) 0.0, Nucleated Red Blood Cells % (auto) 0.0, Prothrombin Time 14.6H, Prothromb Time International Ratio 1.10, Activated Partial Thromboplast Time 32.0, Anion Gap 2L, Glomerular Filtration Rate > 60.0, Calcium Level 8.8, Magnesium Level 2.0, Total Bilirubin 0.2, Direct Bilirubin < 0.1, Aspartate Amino Transf (AST/SGOT) 22, Alanine Aminotransferase (ALT/SGPT) 21, Alkaline Phosphatase 111, ZE-Jxj-W-Type Natriuretic Peptide 742H, Total Protein 6.6, Albumin 3.6, Albumin/Globulin Ratio 1.2, Lipase 182, Thyroid Stimulating Hormone (TSH) 1.210, Free Thyroxine 1.00 02/07/21 16:33: POC Glucose (Misc Panel) 84, POC Sodium (Misc Panel) 140, POC Potassium (Misc Panel) 4.5, POC Chloride (Misc Panel) 104, POC Total CO2 (Misc Panel) 26.0, POC Blood Urea Nitrogen (Misc Panel 20, POC Ionized Calcium (Misc Panel) 4.9, POC Creatinine (Misc Panel) 0.8, POC Hematocrit (Misc Panel) 36.0L 02/07/21 16:34: Coronavirus (COVID-19)(PCR) NEGATIVE, Influenza Type A (RT-PCR) NEGATIVE, Influenza Type B (RT-PCR) NEGATIVE, Respiratory Syncytial Virus (PCR) NEGATIVE 02/07/21 16:38: POC Troponin I (Misc) 0.00 02/08/21 05:06: Immature Granulocyte % (Auto) 0.2, Neutrophils (%) (Auto) 35.6L, Lymphocytes (%) (Auto) 52.8H, Monocytes (%) (Auto) 8.1H, Eosinophils (%) (Auto) 2.4, Basophils (%) (Auto) 0.9, Neutrophils # (Auto) 2.1, Lymphocytes # (Auto) 3.1, Monocytes # (Auto) 0.5, Eosinophils # (Auto) 0.1, Basophils # (Auto) 0.1, Nucleated Red Blood Cells % (auto) 0.0, Anion Gap 3L, Glomerular Filtration Rate > 60.0, Calcium Level 8.9, Iron Level 51, Total Iron Binding Capacity 304, Transferrin % Saturation 16.8, Ferritin 13, Vitamin B12 Level 409, Folate 10.3 02/08/21 12:34: Bedside Glucose (Misc Panel) 77L 02/08/21 13:33: Lab Scanned Report Miscellaneous Lab CBC/BMP Laboratory Tests 02/07/21 16:25 02/08/21 05:06 JU MARTINEZ DO Feb 08, 2021 14:22
[2021-02-08] MEDS: METOPROLOL TART 25 MG TABLET PO SCH ×3 (14:48→23:30)
[2021-02-08] MEDS ORDERED: RIVAROXABAN 20 MG TAB (XARELTO) PO SCH (18:00)
[2021-02-08] MEDS ORDERED: LATANOPROST 0.005% OPHTH SOLN 2.5 ML OS SCH (21:00)
[2021-02-09] VITALS: BP 105/55
[2021-02-09 04:00] VITALS: BP 98/55
[2021-02-09 05:19] LABS: BASO # 0.1 10^3/uL (0.0-0.2); BASO % 0.8 % (0.0-1.0); EOS # 0.1 10^3/uL (0.0-0.5); EOS % 2.1 % (0.0-3.0); HEMATOCRIT 36.6 % (36.0-47.0); HEMOGLOBIN 11.3 g/dl (12.0-15.5); LYMPH # 3.1 10^3/uL (1.5-5.0); MEAN CORPUSCULAR HEMOGLOBIN 30.2 pg (27.0-33.0); MEAN CORPUSCULAR HGB CONC 30.9 g/dl (32.0-36.5); MEAN CORPUSCULAR VOLUME 97.9 fl (80.0-96.0); MONO # 0.5 10^3/uL (0.0-0.8); MONO % 8.6 % (2.0-8.0); NEUTROPHILS # 2.5 10^3/uL (1.5-8.5); NEUTROPHILS % 39.3 % (36.0-66.0); PLATELET COUNT, AUTOMATED 259 10^3/uL (150-450); RED BLOOD COUNT 3.74 10^6/uL (4.00-5.40); WHITE BLOOD COUNT 6.3 10^3/uL (4.0-10.0)
[2021-02-09] MEDS: METOPROLOL TART 25 MG TABLET PO SCH (05:20)
[2021-02-09 05:42] LABS: BLOOD UREA NITROGEN 20 MG/DL (7-18); CALCIUM LEVEL 9.1 MG/DL (8.8-10.2); CARBON DIOXIDE LEVEL 27 MEQ/L (21-32); CHLORIDE LEVEL 110 MEQ/L (98-107); CREATININE FOR GFR 0.62 MG/DL (0.55-1.30); GLOMERULAR FILTRATION RATE > 60.0 (>45); GLUCOSE, FASTING 86 MG/DL (70-100); POTASSIUM SERUM 4.2 MEQ/L (3.5-5.1); SODIUM LEVEL 140 MEQ/L (136-145)
[2021-02-09 08:00] VITALS: BP 96/44
[2021-02-09] MEDS: MULTIVITAMINS/MINERALS THERAP 1 TAB PO SCH (08:16)
[2021-02-09] MEDS: CYANOCOBALAMIN 500 MCG TAB PO SCH (08:16)
[2021-02-09] MEDS: OMEPRAZOLE 20 MG CAP PO SCH (08:16)
[2021-02-09] MEDS: DULoxetine 30MG CAPSULE (CYMBALTA) PO SCH (08:16)
[2021-02-09] MEDS ORDERED: DIGOXIN 0.25 MG TAB PO SCH (09:00)
[2021-02-09] MEDS ORDERED: NS 500 ML IV ONE (11:45)
[2021-02-09] MEDS ORDERED: METO1TAB87 PO (13:30)
[2021-02-09 14:44] VITALS: BP 116/62
[2021-02-09] MEDS ORDERED: METOPROLOL TART 12.5 MG PER 1/2 TAB PO SCH (17:00)
--- NOTE | 2021-02-09 19:24 | DS.PDOC ---
Discharge Summary General Date of Admission Feb 07, 2021 at 18:43 Date of Discharge Feb 10, 2020 Discharge Summary PROCEDURES PERFORMED DURING STAY: None ADMITTING DIAGNOSES: 1. Atrial fibrillation with rapid ventricular response 2. GERD 3. ABRAHAM 4. Glaucoma DISCHARGE DIAGNOSES: 1. Atrial fibrillation with rapid ventricular response 2. GERD 3. ABRAHAM 4. Glaucoma COMPLICATIONS/CHIEF COMPLAINT: Atrial Fibrillation With Rvr. HISTORY OF PRESENT ILLNESS: Copied from admitting provider's H&P " Nessa Wilhelm is a 65 yo F with PMH of cataracts, afib, glaucoma, ABRAHAM without CPAP, GERD, and OA who arrives from cardiology office with dizziness and elevated HR. Pt reportedly has had afib for some time but "never have needed medication" until recently. She reports she has been having episodes of dizziness, chest pain and headaches intermittently past 6 days. She was seen by cardiology and given her uncontrolled HR in 140s and her symptoms, went to [facility] where she was started on metoprolol. Unfortunately, pt's SBP had been running 90-115 and she was adjusted to metoprolol tartrate. She reports taking 5 doses total (twice past 2 days and one this AM). As she went for f/u with cardiology today, was still symptomatic with HR labile 90-140 with softer BP; she was sent to ED for further management to control HR other than metoprolol. Cardiology, Dr. Vieira, consulted in ED and recommended Digoxin loading dose and he would see pt in AM. Pt afebrile, Map greater than 70 during admission and HR varying 90-115. Initial labwork unremarkable. Given pt with dizziness, tachycardia, episodes of chest pain and BUSTAMANTE, she underwent CTA chest and CT head which were nonacute. Pt does endorse recent tooth extraction 6 days ago as only new adjustment and took 6 days worth of Augmentin which finished today. Pt will be admitted for further evaluation and management of presenting concerns. " HOSPITAL COURSE: Patient was loaded with digoxin and started on Lopressor 25mg q6h. Patient's heart rate became very well controlled and then bradycardic. Patient also had mild hypotension. Patient was asymptomatic and feeling better. We backed off on the digoxin and Lopressor. I spoke with Dr. Vieira. He recommended staying only on Lopressor, no digoxin on discharge. I gave a small fluid bolus of 500mL NS. Patient's blood pressure improved to 116/62. Heart rate is well controlled inbetween 60s to 80s. Patient felt ready for home. I put her on 12.5mg QID to keep the rate control without dropping her blood pressure too much. Patient was discharged home with instructions to contact Cardiology on Thursday for follow up appointment. DISCHARGE MEDICATIONS: Please see below. ALLERGIES: Please see below. PHYSICAL EXAMINATION ON DISCHARGE: VITAL SIGNS: Please see below. GENERAL: Comfortable, in no apparent distress. HEENT: Head normocephalic/atraumatic, EOMI, sclera clear. NECK: Supple. RESPIRATORY: Lungs clear to auscultation bilaterally, no rales, wheeze or rhonchi. CARDIOVASCULAR: Rate controlled irregular rhythm. ABDOMEN: Soft, nontender. Normal bowel sounds. MUSCLE SKELETAL: No pitting edema NEUROLOGICAL: CN 3-12 grossly intact, no focal deficits noted. PSYCHOLOGICAL: Normal mood and affect LABORATORY DATA: Please see below. IMAGING: Radiologist interpretation CT angio chest 1. There is no aortic dissection or aneurysm. 2. There are no pulmonary emboli. 3. No acute pulmonary parenchymal abnormality. CT head without contrast No acute intracranial findings. PROGNOSIS: Good ACTIVITY: As tolerated. DIET: As tolerated DISCHARGE PLAN: Patient to return home with home health services. Metoprolol tartrate has been changed to 12.5 mg 4 times a day. Patient should check her blood pressure and heart rate prior to taking the Toprol tartrate. If systolic blood pressures less than 100 or heart rate less than 60, she can skip a dose. DISPOSITION: Home Health Service. DISCHARGE INSTRUCTIONS: 1. Follow-up with your PCP within a week 2. Follow-up with your tin flopper within a week ITEMS TO FOLLOWUP ON ON OUTPATIENT: 1. Heart rate and blood pressure. DISCHARGE CONDITION: Stable Total time spent on discharge planning, discharge summary, and medication reconciliation: 45 minutes Vital Signs/I&Os Vital Signs Date Time Temp Pulse Resp B/P (MAP) Pulse Ox O2 Delivery O2 Flow Rate FiO2 02/09/21 14:44 116/62 (80) 02/09/21 12:00 97.2 85 17 98 Room Air I&O- Last 24 Hours up to 6 AM 02/09/21 06:00 Intake Total 360 ml Output Total 0 ml Balance 360 ml Laboratory Data Labs 24H Laboratory Tests 2 02/08/21 23:24: Bedside Glucose (Misc Panel) 96 1/1/22 05:07: Immature Granulocyte % (Auto) 0.2, Neutrophils (%) (Auto) 39.3, Lymphocytes (%) (Auto) 49.0H, Monocytes (%) (Auto) 8.6H, Eosinophils (%) (Auto) 2.1, Basophils (%) (Auto) 0.8, Neutrophils # (Auto) 2.5, Lymphocytes # (Auto) 3.1, Monocytes # (Auto) 0.5, Eosinophils # (Auto) 0.1, Basophils # (Auto) 0.1, Nucleated Red Blood Cells % (auto) 0.0, Anion Gap 3L, Glomerular Filtration Rate > 60.0, Calcium Level 9.1 CBC/BMP Laboratory Tests 02/09/21 05:07 FSBS Laboratory Tests Test 02/08/21 23:24 Range/Units Bedside Glucose (Misc Panel) 96 80-115 MG/DL Discharge Medications Scheduled Amoxicillin (Amoxicillin) 500 Mg Capsule, 500 MG PO Q8H, (Reported) Cyanocobalamin (Vitamin B-12) (Vitamin B-12) 500 Mcg Tablet, 1,000 MCG PO DAILY, (Reported) Dorzolamide HCl (Trusopt) 2% 10ML Drops, 1 DROP OS BID, (Reported) Duloxetine Hcl (Cymbalta) 30 Mg Capsule.dr, 30 MG PO DAILY, (Reported) Gabapentin (Neurontin) 300 Mg Capsule, 600 MG PO QHS, (Reported) Latanoprost (Xalatan) 0.005% 2.5ML Drops, 1 DROP OS QHS, (Reported) Metoprolol Tartrate (Metoprolol Tartrate) 25 Mg Tablet, 12.5 MG PO QID Multivitamin (Multivitamins) 1 Each Tablet, 1 TAB PO DAILY, (Reported) Omeprazole (Omeprazole) 40 Mg Capsule.dr, 40 MG PO DAILY, (Reported) Rivaroxaban (Xarelto) 20 Mg Tablet, 20 MG PO QHS, (Reported) Scheduled PRN Acetaminophen (8 Hour) 650 Mg Tablet.er, 650 MG PO Q8H PRN for PAIN, (Reported) Tramadol HCl (Tramadol HCl) 50 Mg Tablet, 50 MG PO BIDP PRN for PAIN, (Reported) Allergies Coded Allergies: No Known Allergies (Unverified , 01/17/19) JU MARTINEZ DO Feb 09, 2021 19:24
--- NOTE | 2021-02-10 09:40 | ECGEPIP ---
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
== END 2021-02-09 16:10 | disposition home health service (06) | DRG 310 ==
LOC: M ED 15:50 → M ED INP 18:43 → M PCU 02-08 02:48
PROVIDERS: ADMIT Internal Medicine; ATTEND Internal Medicine
DX: I48.91 Unspecified atrial fibrillation (principal); K21.9 Gastro-esophageal reflux disease without esophagitis; F32.A Depression, unspecified; H40.9 Unspecified glaucoma; G47.33 Obstructive sleep apnea (adult) (pediatric); M19.90 Unspecified osteoarthritis, unspecified site; Z79.2 Long term (current) use of antibiotics; Z79.899 Other long term (current) drug therapy; Z79.01 Long term (current) use of anticoagulants; Z20.822 Contact with and (suspected) exposure to COVID-19; Z98.41 Cataract extraction status, right eye; Z98.42 Cataract extraction status, left eye; Z98.84 Bariatric surgery status; Z90.49 Acquired absence of other specified parts of digestive tract

== ENCOUNTER → 2021-03-07 | Outpatient (REF) | payer MEDICARE ==
[~2021-03-07] MED LIST changes: +AMIO200T37 PO; +AMOX500C PO; +CEFD300CAP PO; +METO1TAB87 PO; +MULTTAB61 PO; +OMEP40CA5 PO; +XALA0.007 OS
== END ==
LOC: M SFHCCAPE 09:58
PROVIDERS: ATTEND Physician Assistant
DX: R30.0 Dysuria (principal)

== ENCOUNTER 2021-03-17 11:17 | Inpatient (IN) | payer MEDICARE ==
[~2021-03-17] VITALS: Ht 167.6 cm; Wt 76.3 kg
[~2021-03-17 11:17] MED LIST changes: -AMIO200T37 PO; -CEFD300CAP PO
[2021-03-17] MEDS ORDERED: NS 1,000 ML IV ONE (12:05)
[2021-03-17 12:30] LABS: BASO % 0.3 % (0.0-1.0); EOS % 0.1 % (0.0-3.0); HEMATOCRIT 38.2 % (36.0-47.0); HEMOGLOBIN 11.7 g/dl (12.0-15.5); LYMPH # 1.6 10^3/uL (1.5-5.0); LYMPH % 11.4 % (24.0-44.0); MEAN CORPUSCULAR HEMOGLOBIN 29.8 pg (27.0-33.0); MEAN CORPUSCULAR HGB CONC 30.6 g/dl (32.0-36.5); MEAN CORPUSCULAR VOLUME 97.4 fl (80.0-96.0); MONO # 1.1 10^3/uL (0.0-0.8); MONO % 7.4 % (2.0-8.0); NEUTROPHILS # 11.3 10^3/uL (1.5-8.5); NEUTROPHILS % 80.2 % (36.0-66.0); PLATELET COUNT, AUTOMATED 326 10^3/uL (150-450); RED BLOOD COUNT 3.92 10^6/uL (4.00-5.40); WHITE BLOOD COUNT 14.1 10^3/uL (4.0-10.0)
[2021-03-17 12:40] LABS: INR 1.52; PROTHROMBIN TIME 18.7 SECONDS (12.7-14.5)
[2021-03-17 12:56] LABS: CK-MB VALUE MASS < 1.0 NG/ML (<3.6); CPK CREATINE PHOSPHOKINASE 37 U/L (26-192)
[2021-03-17 13:04] LABS: ALBUMIN 3.3 GM/DL (3.2-5.2); ALT/SGPT 15 U/L (12-78); BILIRUBIN,DIRECT 0.2 MG/DL (0.0-0.2); BILIRUBIN,TOTAL 0.5 MG/DL (0.2-1.0); BLOOD UREA NITROGEN 21 MG/DL (7-18); CALCIUM LEVEL 8.8 MG/DL (8.8-10.2); CARBON DIOXIDE LEVEL 26 MEQ/L (21-32); CHLORIDE LEVEL 105 MEQ/L (98-107); CREATININE FOR GFR 0.97 MG/DL (0.55-1.30); FREE T4 1.38 NG/DL (0.76-1.46); GLOMERULAR FILTRATION RATE > 60.0 (>45); GLUCOSE, FASTING 96 MG/DL (70-100); POTASSIUM SERUM 4.3 MEQ/L (3.5-5.1); SODIUM LEVEL 138 MEQ/L (136-145); TOTAL PROTEIN 6.7 GM/DL (6.4-8.2)
[2021-03-17] MEDS ORDERED: METO1TAB87 PO (13:42)
[2021-03-17] MEDS ORDERED: AMIO200T37 PO (13:42)
[2021-03-17] MEDS ORDERED: HOME MED LIST COMPLETE! XX SCH (13:45)
[2021-03-17] MEDS ORDERED: ACETAMINOPHEN 650MG ER TAB (TYLENOL ARTHRITIS) PO PRN (14:00)
[2021-03-17] MEDS ORDERED: NS 1,000 ML IV SCH (14:00)
[2021-03-17 17:20] VITALS: BP_SYST 109; BP_SYST 112; BP_SYST 113; BP_DIAS 68; BP_DIAS 69
[2021-03-17] MEDS ORDERED: cefTRIAXone SOD 1GM VIAL (J0696 PER 250MG) IM SCH (17:35)
[2021-03-17 18:00] VITALS: BP 113/69
[2021-03-17] MEDS ORDERED: ACETAMINOPHEN 650MG ER TAB (TYLENOL ARTHRITIS) PO ONE (18:30)
[2021-03-17] MEDS: RIVAROXABAN 20 MG TAB (XARELTO) PO SCH (18:36)
[2021-03-17] MEDS: cefTRIAXone SOD 1 GM in D5W MINI-BAG PLUS 50 ML IV SCH (18:36)
[2021-03-17] MEDS: METOPROLOL TART 12.5 MG PER 1/2 TAB PO SCH (21:00)
[2021-03-17] MEDS: GABAPENTIN 300 MG CAP PO SCH (21:11)
[2021-03-17] MEDS: LATANOPROST 0.005% OPHTH SOLN 2.5 ML OS SCH (21:12)
[2021-03-17] MEDS: DORZOLAMIDE 2% OPHTH SOLN 10 ML BTL OS SCH (21:12)
[2021-03-17 23:12] VITALS: BP 100/61
[2021-03-18 02:30] VITALS: BP_SYST 120; BP_SYST 122; BP_SYST 124; BP_DIAS 71; BP_DIAS 77; BP_DIAS 79
[2021-03-18 05:50] LABS: HEMATOCRIT 33.2 % (36.0-47.0); HEMOGLOBIN 10.2 g/dl (12.0-15.5); MEAN CORPUSCULAR HEMOGLOBIN 30.3 pg (27.0-33.0); MEAN CORPUSCULAR HGB CONC 30.7 g/dl (32.0-36.5); MEAN CORPUSCULAR VOLUME 98.5 fl (80.0-96.0); RED BLOOD COUNT 3.37 10^6/uL (4.00-5.40); WHITE BLOOD COUNT 8.6 10^3/uL (4.0-10.0)
[2021-03-18 06:00] LABS: PLATELET COUNT, AUTOMATED 193 10^3/uL (150-450)
[2021-03-18 06:09] LABS: BLOOD UREA NITROGEN 17 MG/DL (7-18); CALCIUM LEVEL 8.7 MG/DL (8.8-10.2); CARBON DIOXIDE LEVEL 26 MEQ/L (21-32); CHLORIDE LEVEL 110 MEQ/L (98-107); CREATININE FOR GFR 0.76 MG/DL (0.55-1.30); GLOMERULAR FILTRATION RATE > 60.0 (>45); GLUCOSE, FASTING 88 MG/DL (70-100); POTASSIUM SERUM 3.8 MEQ/L (3.5-5.1); SODIUM LEVEL 140 MEQ/L (136-145)
[2021-03-18 08:35] VITALS: BP_SYST 107; BP_SYST 114; BP_SYST 121; BP_DIAS 66; BP_DIAS 71; BP_DIAS 76
[2021-03-18] MEDS: METOPROLOL TART 12.5 MG PER 1/2 TAB PO SCH ×2 (08:39→20:36)
[2021-03-18] MEDS: CYANOCOBALAMIN 500 MCG TAB PO SCH (08:40)
[2021-03-18] MEDS: AMIODARONE 200 MG TAB (PACERONE) PO SCH (08:40)
[2021-03-18] MEDS: DORZOLAMIDE 2% OPHTH SOLN 10 ML BTL OS SCH ×2 (08:41→20:37)
[2021-03-18] MEDS: DULoxetine 30MG CAPSULE (CYMBALTA) PO SCH (08:41)
[2021-03-18] MEDS: ACETAMINOPHEN 650MG ER TAB (TYLENOL ARTHRITIS) PO PRN (08:54)
[2021-03-18] MEDS ORDERED: METOPROLOL TART 12.5 MG PER 1/2 TAB PO ONE (09:20)
[2021-03-18 14:00] VITALS: BP 114/58
[2021-03-18] MEDS: cefTRIAXone SOD 1 GM in D5W MINI-BAG PLUS 50 ML IV SCH (17:10)
[2021-03-18] MEDS: RIVAROXABAN 20 MG TAB (XARELTO) PO SCH (17:10)
[2021-03-18 18:16] VITALS: BP_SYST 118; BP_SYST 125; BP_SYST 132; BP_DIAS 66; BP_DIAS 68
[2021-03-18 19:32] LABS: MAGNESIUM LEVEL 1.8 MG/DL (1.7-2.2)
[2021-03-18] MEDS: GABAPENTIN 300 MG CAP PO SCH (20:33)
[2021-03-18] MEDS: LATANOPROST 0.005% OPHTH SOLN 2.5 ML OS SCH (20:37)
[2021-03-18 21:00] VITALS: BP 128/72
[2021-03-19 04:00] VITALS: BP_SYST 102; BP_SYST 104; BP_SYST 98; BP_DIAS 55; BP_DIAS 58; BP_DIAS 65
[2021-03-19 06:00] VITALS: BP 102/65
[2021-03-19] MEDS: DORZOLAMIDE 2% OPHTH SOLN 10 ML BTL OS SCH ×2 (09:00→21:00)
[2021-03-19] MEDS: AMIODARONE 200 MG TAB (PACERONE) PO SCH (09:05)
[2021-03-19] MEDS: METOPROLOL TART 12.5 MG PER 1/2 TAB PO SCH ×2 (09:05→20:59)
[2021-03-19] MEDS: CYANOCOBALAMIN 500 MCG TAB PO SCH (10:34)
[2021-03-19] MEDS: DULoxetine 30MG CAPSULE (CYMBALTA) PO SCH (10:34)
[2021-03-19] MEDS: ACETAMINOPHEN 650MG ER TAB (TYLENOL ARTHRITIS) PO PRN ×2 (10:35→21:13)
[2021-03-19 10:41] LABS: HEMATOCRIT 30.9 % (36.0-47.0); HEMOGLOBIN 9.6 g/dl (12.0-15.5); MEAN CORPUSCULAR HEMOGLOBIN 30.4 pg (27.0-33.0); MEAN CORPUSCULAR HGB CONC 31.1 g/dl (32.0-36.5); MEAN CORPUSCULAR VOLUME 97.8 fl (80.0-96.0); PLATELET COUNT, AUTOMATED 200 10^3/uL (150-450); RED BLOOD COUNT 3.16 10^6/uL (4.00-5.40); WHITE BLOOD COUNT 4.8 10^3/uL (4.0-10.0)
[2021-03-19 11:03] LABS: PHOSPHORUS LEVEL 2.3 MG/DL (2.5-4.9)
[2021-03-19 11:05] LABS: ALBUMIN 2.5 GM/DL (3.2-5.2); ALT/SGPT 11 U/L (12-78); BILIRUBIN,TOTAL 0.2 MG/DL (0.2-1.0); BLOOD UREA NITROGEN 16 MG/DL (7-18); CALCIUM LEVEL 8.6 MG/DL (8.8-10.2); CARBON DIOXIDE LEVEL 25 MEQ/L (21-32); CHLORIDE LEVEL 111 MEQ/L (98-107); GLOMERULAR FILTRATION RATE > 60.0 (>45); GLUCOSE, FASTING 143 MG/DL (70-100); POTASSIUM SERUM 3.2 MEQ/L (3.5-5.1); SODIUM LEVEL 144 MEQ/L (136-145); TOTAL PROTEIN 6.3 GM/DL (6.4-8.2)
[2021-03-19 14:00] VITALS: BP_SYST 101; BP_SYST 105; BP_SYST 90; BP_SYST 97; BP_DIAS 62; BP_DIAS 64; BP_DIAS 65; BP_DIAS 68
[2021-03-19] MEDS ORDERED: POTASSIUM CHLORIDE 10MEQ SR TABLET PO ONE (14:00)
[2021-03-19] MEDS ORDERED: POTASSIUM PHOSPHATE INJ 15 MMOL in D5W 250 ML IV ONE (16:00)
[2021-03-19] MEDS: RIVAROXABAN 20 MG TAB (XARELTO) PO SCH (18:37)
[2021-03-19] MEDS: cefTRIAXone SOD 1 GM in D5W MINI-BAG PLUS 50 ML IV SCH (18:37)
[2021-03-19 20:00] VITALS: BP 113/60
[2021-03-19] MEDS: GABAPENTIN 300 MG CAP PO SCH (20:58)
[2021-03-19] MEDS: LATANOPROST 0.005% OPHTH SOLN 2.5 ML OS SCH (21:00)
[2021-03-19] MEDS ORDERED: POLYVINYL ALCOHOL OPHTH SOLN 15 ML(LIQUITEARS) OU PRN (21:00)
[2021-03-19 21:43] LABS: MAGNESIUM LEVEL 1.7 MG/DL (1.7-2.2)
[2021-03-20] VITALS (12 sets, daily range): BP systolic 104–130; BP diastolic 60–79
[2021-03-20 06:24] LABS: HEMATOCRIT 32.5 % (36.0-47.0); HEMOGLOBIN 9.9 g/dl (12.0-15.5); MEAN CORPUSCULAR HEMOGLOBIN 30.1 pg (27.0-33.0); MEAN CORPUSCULAR HGB CONC 30.5 g/dl (32.0-36.5); MEAN CORPUSCULAR VOLUME 98.8 fl (80.0-96.0); PLATELET COUNT, AUTOMATED 251 10^3/uL (150-450); RED BLOOD COUNT 3.29 10^6/uL (4.00-5.40); WHITE BLOOD COUNT 4.9 10^3/uL (4.0-10.0)
[2021-03-20 06:58] LABS: ALBUMIN 2.6 GM/DL (3.2-5.2); ALT/SGPT 12 U/L (12-78); BILIRUBIN,TOTAL 0.1 MG/DL (0.2-1.0); BLOOD UREA NITROGEN 14 MG/DL (7-18); CALCIUM LEVEL 9.1 MG/DL (8.8-10.2); CARBON DIOXIDE LEVEL 27 MEQ/L (21-32); CHLORIDE LEVEL 113 MEQ/L (98-107); CREATININE FOR GFR 0.77 MG/DL (0.55-1.30); GLOMERULAR FILTRATION RATE > 60.0 (>45); GLUCOSE, FASTING 77 MG/DL (70-100); SODIUM LEVEL 144 MEQ/L (136-145); TOTAL PROTEIN 6.5 GM/DL (6.4-8.2)
[2021-03-20] MEDS: DULoxetine 30MG CAPSULE (CYMBALTA) PO SCH (09:27)
[2021-03-20] MEDS: ACETAMINOPHEN 650MG ER TAB (TYLENOL ARTHRITIS) PO PRN ×2 (09:27→20:28)
[2021-03-20] MEDS: METOPROLOL TART 12.5 MG PER 1/2 TAB PO SCH ×2 (09:27→20:27)
[2021-03-20] MEDS: CYANOCOBALAMIN 500 MCG TAB PO SCH (09:27)
[2021-03-20] MEDS: AMIODARONE 200 MG TAB (PACERONE) PO SCH (09:28)
[2021-03-20] MEDS: DORZOLAMIDE 2% OPHTH SOLN 10 ML BTL OS SCH ×2 (09:28→20:28)
[2021-03-20] MEDS ORDERED: propofoL 200 MG/20 ML VIAL As Ordered ONE (11:59)
[2021-03-20] MEDS ORDERED: LIDOCAINE 2% 100MG/5ML SDV (FOR ANES.) As Ordered ONE (11:59)
[2021-03-20] MEDS: RIVAROXABAN 20 MG TAB (XARELTO) PO SCH (17:40)
[2021-03-20] MEDS: cefTRIAXone SOD 1 GM in D5W MINI-BAG PLUS 50 ML IV SCH (17:40)
[2021-03-20] MEDS: GABAPENTIN 300 MG CAP PO SCH (20:28)
[2021-03-20] MEDS: LATANOPROST 0.005% OPHTH SOLN 2.5 ML OS SCH (20:28)
[2021-03-21 05:09] LABS: HEMATOCRIT 30.1 % (36.0-47.0); HEMOGLOBIN 8.9 g/dl (12.0-15.5); MEAN CORPUSCULAR HEMOGLOBIN 29.6 pg (27.0-33.0); MEAN CORPUSCULAR HGB CONC 29.6 g/dl (32.0-36.5); PLATELET COUNT, AUTOMATED 220 10^3/uL (150-450); RED BLOOD COUNT 3.01 10^6/uL (4.00-5.40); WHITE BLOOD COUNT 4.1 10^3/uL (4.0-10.0)
[2021-03-21 05:31] LABS: ALBUMIN 2.7 GM/DL (3.2-5.2); ALT/SGPT 13 U/L (12-78); BILIRUBIN,TOTAL < 0.1 MG/DL (0.2-1.0); BLOOD UREA NITROGEN 19 MG/DL (7-18); CALCIUM LEVEL 8.8 MG/DL (8.8-10.2); CARBON DIOXIDE LEVEL 28 MEQ/L (21-32); CHLORIDE LEVEL 110 MEQ/L (98-107); CREATININE FOR GFR 0.86 MG/DL (0.55-1.30); GLOMERULAR FILTRATION RATE > 60.0 (>45); GLUCOSE, FASTING 77 MG/DL (70-100); POTASSIUM SERUM 4.3 MEQ/L (3.5-5.1); SODIUM LEVEL 144 MEQ/L (136-145); TOTAL PROTEIN 6.4 GM/DL (6.4-8.2)
[2021-03-21 08:00] VITALS: BP 97/67
[2021-03-21] MEDS: DULoxetine 30MG CAPSULE (CYMBALTA) PO SCH (08:43)
[2021-03-21] MEDS: AMIODARONE 200 MG TAB (PACERONE) PO SCH (08:43)
[2021-03-21] MEDS: CYANOCOBALAMIN 500 MCG TAB PO SCH (08:43)
[2021-03-21 08:48] VITALS: BP 97/67
[2021-03-21] MEDS: DORZOLAMIDE 2% OPHTH SOLN 10 ML BTL OS SCH (08:48)
[2021-03-21] MEDS: METOPROLOL TART 12.5 MG PER 1/2 TAB PO SCH (08:48)
[2021-03-21] MEDS: ACETAMINOPHEN 650MG ER TAB (TYLENOL ARTHRITIS) PO PRN (08:49)
[2021-03-21] MEDS ORDERED: CEFDINIR 300 MG CAP (OMNICEF) PO SCH (09:00)
[2021-03-21 12:28] LABS: HEMATOCRIT 30.2 % (36.0-47.0); HEMOGLOBIN 9.3 g/dl (12.0-15.5)
[2021-03-21] MEDS ORDERED: CEFD300CAP PO (12:45)
== END 2021-03-21 14:09 | disposition home or self-care (01) | DRG 309 ==
LOC: M ED 11:17 → M ED INP 11:18 → M MSPAV 17:06 → OBSVTOIN 03-18 09:18
PROVIDERS: ADMIT Family Medicine; ATTEND Family Medicine
PROC: 5A2204Z Restoration of Cardiac Rhythm, Single (ICD-10-PCS; principal; 2021-03-20 12:30)
DX: I48.92 Unspecified atrial flutter (principal); N39.0 Urinary tract infection, site not specified; I95.1 Orthostatic hypotension; D72.829 Elevated white blood cell count, unspecified; I48.91 Unspecified atrial fibrillation; H40.9 Unspecified glaucoma; G47.33 Obstructive sleep apnea (adult) (pediatric); K21.9 Gastro-esophageal reflux disease without esophagitis; M19.90 Unspecified osteoarthritis, unspecified site; Z98.41 Cataract extraction status, right eye; Z98.42 Cataract extraction status, left eye; Z98.84 Bariatric surgery status; Z90.49 Acquired absence of other specified parts of digestive tract; Z79.01 Long term (current) use of anticoagulants; Z79.899 Other long term (current) drug therapy; B96.20 Unspecified Escherichia coli [E. coli] as the cause of diseases classified elsewhere; E87.6 Hypokalemia; E83.39 Other disorders of phosphorus metabolism; Z20.822 Contact with and (suspected) exposure to COVID-19

== ENCOUNTER → 2021-04-30 | Outpatient (CLI) | payer MEDICARE, OTHER ==
[~2021-04-30] MED LIST changes: +AMIO200T37 PO; +CEFD300CAP PO
== END ==
LOC: M WHC 09:07
PROVIDERS: ATTEND Obstetrics & Gynecology
DX: Z12.31 Encounter for screening mammogram for malignant neoplasm of breast (principal); Z78.0 Asymptomatic menopausal state

== ENCOUNTER → 2021-05-15 | Outpatient (REF) | payer MEDICARE | LOC: M LAB REF 16:15 | PROVIDERS: ATTEND Nurse Practitioner Adult Health | DX: R30.0 Dysuria (principal) ==

== ENCOUNTER → 2021-10-04 | Outpatient (CLI) | payer MEDICARE ==
[~2021-10-04] MED LIST changes: +METO1TAB32 PO; +MM S100C PO; +QC F0.52 PO
== END ==
LOC: M SLEEP 20:00
PROVIDERS: ATTEND Nurse Practitioner Family
DX: G47.33 Obstructive sleep apnea (adult) (pediatric) (principal)

== ENCOUNTER → 2021-10-06 | Outpatient (CLI) | payer MEDICARE | LOC: M LABSMTC 09:39 | PROVIDERS: ATTEND Anesthesiology | DX: Z01.818 Encounter for other preprocedural examination (principal); Z11.52 Encounter for screening for COVID-19 ==

== ENCOUNTER 2021-10-09 09:43 | Day surgery (SDC) | payer MEDICARE ==
[~2021-10-09] VITALS: Ht 165.1 cm; Wt 71.2 kg
[~2021-10-09 09:43] MED LIST changes: +NS 1,000 ML IV ONE
[2021-10-09] MEDS ORDERED: propofoL 200 MG/20 ML VIAL As Ordered ONE (10:45)
[2021-10-09] MEDS ORDERED: LIDOCAINE 2% 100MG/5ML SDV (FOR ANES.) As Ordered ONE (10:45)
[2021-10-09] MEDS ORDERED: fentaNYL 100 MCG/2 ML INJECTION As Ordered ONE (11:54)
[2021-10-09 12:40] VITALS: BP 114/72
== END 2021-10-09 12:53 | disposition home or self-care (01) ==
LOC: M OPP 09:43
PROVIDERS: ATTEND Internal Medicine Gastroenterology
DX: K57.30 Diverticulosis of large intestine without perforation or abscess without bleeding (principal); K64.0 First degree hemorrhoids; Z98.84 Bariatric surgery status; K22.89 Other specified disease of esophagus; I48.91 Unspecified atrial fibrillation; G47.30 Sleep apnea, unspecified; F32.9 Major depressive disorder, single episode, unspecified; F41.9 Anxiety disorder, unspecified; Z79.1 Long term (current) use of non-steroidal anti-inflammatories (NSAID); Z79.899 Other long term (current) drug therapy; Z79.891 Long term (current) use of opiate analgesic
CPT/HCPCS: 43239; 45378; 88305; J3010

== ENCOUNTER → 2021-12-20 | Outpatient (REF) | payer MEDICARE, OTHER ==
[~2021-12-20] MED LIST changes: -NS 1,000 ML IV ONE
[2021-12-20 15:33] LABS: PERCENT SATURATION 22.1 % (13.2-45.0)
[2021-12-23 09:57] LABS: FOLATE 14.9 NG/ML
== END ==
LOC: M LAB REF 13:11
PROVIDERS: ATTEND Nurse Practitioner Adult Health
DX: Z98.84 Bariatric surgery status (principal); D50.9 Iron deficiency anemia, unspecified

== ENCOUNTER → 2022-02-06 | Outpatient (REF) | payer MEDICARE | LOC: M SFHCCAPE 14:06 | PROVIDERS: ATTEND Physician Assistant | DX: J22 Unspecified acute lower respiratory infection (principal) ==

== ENCOUNTER → 2022-02-06 | Outpatient (CLI) | payer MEDICARE | LOC: M CLY 14:41 | PROVIDERS: ATTEND Physician Assistant | DX: J22 Unspecified acute lower respiratory infection (principal) ==

== ENCOUNTER → 2022-05-08 | Outpatient (CLI) | payer MEDICARE | LOC: M WHC 08:47 | PROVIDERS: ATTEND Nurse Practitioner Adult Health | DX: Z12.31 Encounter for screening mammogram for malignant neoplasm of breast (principal) ==

== ENCOUNTER → 2022-07-10 | Outpatient (CLI) | payer MEDICARE, OTHER | LOC: M SLEEP 20:00 | PROVIDERS: ATTEND Nurse Practitioner Family | DX: G47.33 Obstructive sleep apnea (adult) (pediatric) (principal); G47.61 Periodic limb movement disorder ==

== ENCOUNTER → 2022-12-02 | Outpatient (CLI) | payer MEDICARE, OTHER | LOC: M WHC 08:39 | PROVIDERS: ATTEND Nurse Practitioner Family | DX: M81.0 Age-related osteoporosis without current pathological fracture (principal) ==

== ENCOUNTER → 2023-05-21 | Outpatient (REF) | payer MEDICARE, OTHER | LOC: M LAB REF 11:59 | PROVIDERS: ATTEND Nurse Practitioner Family | DX: M25.561 Pain in right knee (principal) ==

== ENCOUNTER → 2023-05-25 | Outpatient (CLI) | payer MEDICARE | LOC: M WHC 08:37 | PROVIDERS: ATTEND Nurse Practitioner Family | DX: Z12.31 Encounter for screening mammogram for malignant neoplasm of breast (principal) ==

== ENCOUNTER → 2023-08-27 | Outpatient (CLI) | payer MEDICARE, OTHER, MEDICAID | LOC: M WUC 08:30 | PROVIDERS: ATTEND Nurse Practitioner Family | DX: M54.2 Cervicalgia (principal); M47.892 Other spondylosis, cervical region; M46.92 Unspecified inflammatory spondylopathy, cervical region ==

== ENCOUNTER → 2023-10-22 | Outpatient (CLI) | payer MEDICARE | LOC: M PAIN 13:00 | PROVIDERS: ATTEND Nurse Practitioner Family | DX: M79.12 Myalgia of auxiliary muscles, head and neck (principal); G89.29 Other chronic pain; I10 Essential (primary) hypertension; G47.30 Sleep apnea, unspecified; H40.9 Unspecified glaucoma; F32.A Depression, unspecified; Z87.891 Personal history of nicotine dependence; Z79.01 Long term (current) use of anticoagulants; Z79.899 Other long term (current) drug therapy ==

== ENCOUNTER → 2023-11-23 | Outpatient (REF) | payer MEDICARE, MEDICAID ==
[2023-11-23 19:19] LABS: FERRITIN 12.3 NG/ML (7.3-270.7)
[2023-11-23 19:20] LABS: PERCENT SATURATION 27.7 % (13.2-45.0)
== END ==
LOC: M LAB REF 16:18
PROVIDERS: ATTEND Nurse Practitioner Family
DX: D50.9 Iron deficiency anemia, unspecified (principal)

== ENCOUNTER → 2023-12-17 | Outpatient (CLI) | payer MEDICARE ==
[~2023-12-17] MED LIST changes: -CYCL5TAB PO; +CYCL5TAB4 PO; +NORCO, ANEXSIA 5/325MG TABLET (HYDROcodone/ACETAMINOPHEN) As Ordered ONE; +TRIAMCINOLONE ACETONIDE SUSP 40MG/ML 1ML VIAL As Ordered ONE; +diazePAM 5MG TABLET As Ordered ONE
== END ==
LOC: M PAIN 12:45
PROVIDERS: ATTEND Anesthesiology
DX: M79.12 Myalgia of auxiliary muscles, head and neck (principal); G89.29 Other chronic pain; I10 Essential (primary) hypertension; H40.9 Unspecified glaucoma; F32.A Depression, unspecified; Z87.891 Personal history of nicotine dependence; Z79.01 Long term (current) use of anticoagulants; Z79.899 Other long term (current) drug therapy
CPT/HCPCS: 20552; J0665; J3301

== ENCOUNTER → 2024-04-22 | Outpatient (CLI) | payer MEDICARE ==
[~2024-04-22] MED LIST changes: -NORCO, ANEXSIA 5/325MG TABLET (HYDROcodone/ACETAMINOPHEN) As Ordered ONE; -TRIAMCINOLONE ACETONIDE SUSP 40MG/ML 1ML VIAL As Ordered ONE; -diazePAM 5MG TABLET As Ordered ONE
[2024-04-22 16:03] LABS: HEMOGLOBIN 11.1 g/dl (12.0-15.5); MEAN CORPUSCULAR HEMOGLOBIN 29.4 pg (27.0-33.0); MEAN CORPUSCULAR HGB CONC 30.8 g/dl (32.0-36.5); MEAN CORPUSCULAR VOLUME 95.5 fl (80.0-96.0); PLATELET COUNT, AUTOMATED 281 10^3/uL (150-450); RED BLOOD COUNT 3.77 10^6/uL (4.00-5.40); WHITE BLOOD COUNT 6.1 10^3/uL (4.0-10.0)
[2024-04-22 16:13] LABS: ALBUMIN 3.7 G/DL (3.2-5.2); ALKALINE PHOSPHATASE 108 U/L (35-104); ALT/SGPT 12 U/L (7.0-40); AST/SGOT 25 U/L (<34); BILIRUBIN,TOTAL 0.4 MG/DL (0.3-1.2); BLOOD UREA NITROGEN 21 MG/DL (9-23); CALCIUM LEVEL 9.3 MG/DL (8.3-10.6); CARBON DIOXIDE LEVEL 28 MMOL/L (20-31); CHLORIDE LEVEL 105 MMOL/L (98-107); CREATININE FOR GFR 0.83 MG/DL (0.55-1.30); GLOMERULAR FILTRATION RATE > 60.0 (>45); GLUCOSE, FASTING 78 MG/DL (74-106); POTASSIUM SERUM 4.9 MMOL/L (3.5-5.1); SODIUM LEVEL 140 MMOL/L (136-145)
== END ==
LOC: M PLALAB 14:08
PROVIDERS: ATTEND Nurse Practitioner Acute Care
DX: I48.92 Unspecified atrial flutter (principal); R06.02 Shortness of breath

== ENCOUNTER → 2024-06-14 | Outpatient (CLI) | payer MEDICARE, OTHER | LOC: M WHC 15:38 | PROVIDERS: ATTEND Internal Medicine | DX: Z12.31 Encounter for screening mammogram for malignant neoplasm of breast (principal) ==

== ENCOUNTER → 2024-10-25 | Outpatient (CLI) | payer MEDICARE ==
[~2024-10-25] MED LIST changes: +LIDO1ADH93 TD; -LIDO5DIS41 TD
== END ==
LOC: M WUC 11:17
PROVIDERS: ATTEND Nurse Practitioner Adult Health
DX: M25.562 Pain in left knee (principal); M17.12 Unilateral primary osteoarthritis, left knee

== ENCOUNTER → 2024-11-30 | Outpatient (REF) | payer MEDICARE, OTHER ==
[2024-11-30 13:29] LABS: IRON (FE) 48.0 UG/DL (50-170); PERCENT SATURATION 12.5 % (13.2-45.0)
== END ==
LOC: M LAB REF 12:32
PROVIDERS: ATTEND Nurse Practitioner Family
DX: D50.9 Iron deficiency anemia, unspecified (principal)